=== PATIENT | female | born 1955 | race American Indian/Alaskan Native ===

== ENCOUNTER 2017-08-12 13:33 | Outpatient (CLI) | payer MEDICARE ==
--- NOTE | 2017-08-12 15:42 | Mammography Report ---
BILATERAL DIGITAL SCREENING MAMMOGRAM with CAD: 08/12/17 13:33:00 CLINICAL: Routine screening. COMPARISON:01/26/16 FINDINGS: The breasts are almost entirely fatty.Stable bilateral low density circumscribed asymmetries. No mass, architectural distortion or suspicious calcifications. IMPRESSION: No mammographic evidence of malignancy. BI-RADS CATEGORY: 2 - - Benign RECOMMENDATION: Routine mammographic screening in one year. COMMENT: Patient follow-up letters are generated by our [employer] application.
== END 2017-08-12 13:34 | disposition home or self-care (01) ==
LOC: MAMMO 13:33
PROVIDERS: ATTEND Internal Medicine
DX: Z12.31 Encounter for screening mammogram for malignant neoplasm of breast (principal)
CPT/HCPCS: 77067; G0202

== ENCOUNTER 2020-12-25 14:38 | Emergency (ER) | payer MEDICARE ==
[2020-12-25 15:25] VITALS: BP 154/64
--- NOTE | 2020-12-25 20:10 | Emergency Department Report ---
ED General Adult HPI - General Chief complaint: Fever Stated complaint: COVID SYMPTOMS Time Seen by Provider: 12/25/20 19:50 Source: patient Mode of arrival: Ambulatory Limitations: No Limitations - History of Present Illness Initial comments: 65-year-old female patient with history of Graves' disease, diabetes, and hypertension presents to the emergency department with complaints of chills and nonproductive cough for 5 days. No known sick contacts. No current steroid or antibiotic use. No recent travel. No history of chronic lung disease. Denies fever, chest pain, shortness of breath, wheezing, hemoptysis, vomiting, diarrhea, lower extremity pain/swelling. Denies all other complaints at this time. - Related Data Previous Rx's Medication Instructions Recorded Last Taken Type Amoxicillin/Potassium Clav 2,000 mg PO BID 7 Days tab.er.12h 12/26/20 Unknown Rx [Augmentin XR 1000MG 12HR] Azithromycin [Zithromax Z-KANIKA] 0 mg PO DAILY #1 pkg 12/26/20 Unknown Rx Benzonatate [Tessalon Perles] 200 mg PO Q8HR #30 capsule 12/26/20 Unknown Rx Allergies Allergy/AdvReac Type Severity Reaction Status Date / Time No Known Allergies Allergy Verified 12/25/20 15:22 ED Review of Systems ROS: Stated complaint: COVID SYMPTOMS Other details as noted in HPI Other: GENERAL: Positive for chills. ENT: Negative for ear pain, difficulty hearing, sore throat, nasal congestion, epistaxis. CARDIOVASCULAR: Negative for chest pain, palpitations, lower extremity swelling. PULMONARY: Positive for cough. GASTROINTESTINAL: Negative for abdominal pain, nausea, vomiting, diarrhea, constipation. MUSCULOSKELETAL: Negative for joint pain, joint swelling, myalgias, back pain, neck pain. NEUROLOGICAL: Negative for headache, seizure, syncope, paresthesias, weakness. INTEGUMENTARY: Negative for erythema, rash, diaphoresis, laceration, ecchymosis. HEMATOLOGICAL: Negative for hemoptysis, hematemesis, hematochezia, hematuria. PSYCHIATRIC: Negative for hallucinations, suicidal ideation, homicidal ideation, anxiety, depression. ED Past Medical Hx - Past Medical History Hx Hypertension: Yes Hx Diabetes: Yes Additional medical history: GRAVES DISEASE - Surgical History Additional Surgical History: TTHYROID - Medications Home Medications: Home Medications Medication Instructions Recorded Confirmed Last Taken Type Amoxicillin/Potassium Clav 2,000 mg PO BID 7 Days tab.er.12h 12/26/20 Unknown Rx [Augmentin XR 1000MG 12HR] Azithromycin [Zithromax Z-KANIKA] 0 mg PO DAILY #1 pkg 12/26/20 Unknown Rx Benzonatate [Tessalon Perles] 200 mg PO Q8HR #30 capsule 12/26/20 Unknown Rx ED Physical Exam - General Limitations: No Limitations - Other Other exam information: General: Awake and alert. No acute distress. Head: Atraumatic, normocephalic. Eyes: EOMI. Pupils are equal and round. Normal sclera and conjunctiva. Proptosis noted. ENT: Oral mucosa is moist. Normal pharyngeal exam. Neck: Supple. No lymphadenopathy. Pulmonary: No respiratory distress. Clear to auscultation bilaterally. Cardiac: Regular rate and rhythm. Pulses are palpable and equal bilaterally. No lower extremity cyanosis or edema. Skin: Warm and dry. No rashes. Abdomen: Soft, non-tender, non-protuberant. No guarding, rigidity, or rebound. Bowel sounds are normal. No organomegaly or masses noted. Back: Normal alignment. No CVA tenderness. Extremities: Symmetrical. Full range of motion intact. Neurological: Alert and oriented, appropriately interactive, no focal deficits. Psych: Cooperative. Appropriate mood and affect. Speech is evenly metered. Thoughts are logically construed. ED Course Vital Signs 12/25/20 15:24 Temperature 97.6 F Pulse Rate 71 Respiratory 22 Rate Blood Pressure 154/64 O2 Sat by Pulse 98 Oximetry ED Medical Decision Making - Lab Data Result diagrams: 12/25/20 21:25 12/25/20 21:25 - Radiology Data [facility] [address] [place] [address] XRay Report Signed Patient: CHELSEY CHURCH MR#: [id number] : 1955 Acct:[id number] Age/Sex: 65 / F ADM Date: 12/25/20 Loc: ED Attending Dr: Ordering Physician: DRAKE DOWNS Date of Service: 12/25/20 Procedure(s): XR chest routine 2V Accession Number(s): [id number] cc: DRAKE DOWNS Fluoro Time In Minutes: CHEST 2 VIEWS INDICATION: cough. COMPARISON: None. FINDINGS: Support devices: None. Heart: Within normal limits. Lungs/Pleura: Patchy opacity lateral to the left hilum. Small left basilar effusion. IMPRESSION: 1. Left-sided pneumonia lateral to the hilum. Recommend follow-up to ensure clearing and exclude an underlying mass. 2. Small left effusion. Signer Name: Lamberto Zabala MD Signed: 12/25/2020 8:41 PM Workstation Name: [id number] Transcribed By: ES Dictated By: Lamberto Zabala MD Electronically Authenticated By: Lamberto Zabala MD Signed Date/Time: 12/25/202040 DD/ 39 TD/TT: [facility] [address] [place] [address] Cat Scan Report Signed Patient: CHELSEY CHURCH MR#: [id number] : 1955 Acct:[id number] Age/Sex: 65 / F ADM Date: 12/25/20 Loc: ED Attending Dr: Ordering Physician: DRAKE DOWNS Date of Service: 12/25/20 Procedure(s): CT chest w con Accession Number(s): [id number] cc: DRAKE DOWNS CT chest with contrast INDICATION : Pt complains of cough x 3 days, Pleural Effusion, Mass vs. PNA, Abn CXR. TECHNIQUE: 100 mL of intravenous contrast administered. All CT scans at this location are performed using CT dose reduction for ALARA by means of automated exposure control. COMPARISON: Chest x-ray from yesterday FINDINGS: The heart and great vessels appear normal. No pathologic mediastinal adenopathy. A few shoddy lymph nodes are present. Patchy multifocal groundglass airspace disease is present, greatest in the left upper lobe region centrally. There is a trace right-sided pleural effusion and mild underlying compressive atelectasis. Limited imaging of the upper abdomen shows nonobstructive nephrolithiasis with a stone measuring 5 mm in the midpole the left kidney. There is simple cystic change within the liver and mild bilateral adrenal thickening. Nothing acute. There are degenerative changes within the spine with nothing acute. IMPRESSION: 1. Mild patchy multifocal groundglass airspace disease may represent multifocal pneumonia; however, an atypical process should be considered and appropriate testing administered as needed. 2. Additional incidental findings as above. Signer Name: Thuan Ley MD Signed: 12/26/2020 12:46 AM Workstation Name: [id number] Transcribed By: ASHELY Dictated By: Thuan Ley MD Electronically Authenticated By: Thuan Ley MD Signed Date/Time: 12/26/2045 DD/ TD/TT: - Medical Decision Making Differential diagnosis including but not limited to: pneumonia, pleural effusion, influenza, viral upper respiratory infection On reevaluation, patient remains stable. No hypoxia, no respiratory distress. Chest x-ray shows left-sided pneumonia lateral to the hilum with small left pleural effusion; cannot exclude underlying mass. CT of the chest with IV contrast obtained for further evaluation. Imaging showed mild patchy multifocal groundglass airspace disease, may represent multifocal pneumonia. Patient has a less than 1% mortality rate per PSI risk stratification; she is an appropriate candidate for outpatient management. Patient will be discharged home with prescriptions for Augmentin and Zithromax per current ATS/IDSA outpatient community-acquired pneumonia guidelines; Tessalon prescription provided for symptomatic relief. Emphasized the importance of following up with primary care provider and/or pulmonology this week for further evaluation. Patient expressed understanding and is agreeable to plan of care. Disease transmission precautions discussed. Strict return precautions provided. Repeat exam is unremarkable and benign. History, exam, diagnostic testing, and current condition do not suggest worrisome pathology to warrant further testing, continued ED treatment, admission, or surgical evaluation at this point. Given the low probability of a significant medical illness, it would be more likely to result in harm than benefit to perform further testing at this stage. Discussed findings, presumptive diagnosis, need for follow-up and specific signs/symptoms that should prompt immediate return to the emergency department. Instructions were explained in detail to the patient in addition to giving written discharge information. Patient expressed understanding and was given the opportunity to ask questions, all of which were satisfactorily answered prior to discharge home. Critical care attestation.: If time is entered above; I have spent that time in minutes in the direct care of this critically ill patient, excluding procedure time. ED Disposition Clinical Impression: Ground glass opacity present on imaging of lung, Pleural effusion Disposition: TO HOME OR SELFCARE Is pt being admited?: No Does the pt Need Aspirin: No Condition: Stable Instructions: Pleural Effusion, Community-Acquired Pneumonia, Adult, [id number] Additional Instructions: Take Augmentin and Zithromax with food as directed. Increase your dietary intake of probiotic rich foods while taking this medication. Take Tessalon as directed for cough. Rest. Drink plenty fluids. Wash hands frequently to prevent disease transmission. Do not share food or drinks with others. Follow-up with primary care provider and/or pulmonology within 1 week. Call tomorrow to schedule an appointment. Bring a copy of today's results with you to your follow-up appointment. Return to the emergency department immediately for new or worsening symptoms. Specifically, return to the emergency department immediately for fever, difficulty breathing, chest pain, wheezing, rash, loss of consciousness, or any other concerns. Prescriptions: Amoxicillin/Potassium Clav [Augmentin XR 1000MG 12HR] 2,000 mg PO BID 7 Days tab.er.12h Benzonatate [Tessalon Perles] 200 mg PO Q8HR #30 capsule Azithromycin [Zithromax Z-KANIKA] 0 mg PO DAILY #1 pkg Referrals: MODESTA TORO MD [Staff Physician] - 3-5 Days LOULOU ENCARNACION MD [Staff Physician] - 3-5 Days Time of Disposition: 01:06
--- NOTE | 2020-12-25 20:45 | XRay Report ---
CHEST 2 VIEWS INDICATION: cough. COMPARISON: None. FINDINGS: Support devices: None. Heart: Within normal limits. Lungs/Pleura: Patchy opacity lateral to the left hilum. Small left basilar effusion. IMPRESSION: 1. Left-sided pneumonia lateral to the hilum. Recommend follow-up to ensure clearing and exclude an u nderlying mass. 2. Small left effusion. Signer Name: Lamberto Zabala MD Signed: 12/25/2020 8:41 PM Workstation Name: [email or web address]
[2020-12-25 21:35] LABS: Basophils % (Auto) 0.4 % (0.0-1.8); Eosinophils % (Auto) 0.7 % (0.0-4.3); Hematocrit 35.8 % (30.3-42.9); Hemoglobin 12.7 gm/dl (10.1-14.3); Lymphocytes # (Auto) 1.2 K/mm3 (1.2-5.4); Lymphocytes % (Auto) 29.7 % (13.4-35.0); Mean Corpuscular HGB Conc 36 % (30-34); Mean Corpuscular Volume 89 fl (79-97); Monocytes # (Auto) 0.6 K/mm3 (0.0-0.8); Monocytes % (Auto) 14.1 % (0.0-7.3); Platelet Count 306 K/mm3 (140-440); Red Blood Count 4.01 M/mm3 (3.65-5.03); Red Cell Distribution Width 12.8 % (13.2-15.2)
[2020-12-25 21:58] LABS: Alanine Aminotransferase 12 units/L (7-56); Albumin 4.4 g/dL (3.9-5); BUN/Creatinine Ratio 17; Blood Urea Nitrogen 15 mg/dL (7-17); Calcium 9.4 mg/dL (8.4-10.2); Hemolysis Index 7
--- NOTE | 2020-12-26 00:51 | Cat Scan Report ---
CT chest with contrast INDICATION : Pt complains of cough x 3 days, Pleural Effusion, Mass vs. PNA, Abn CXR. TECHNIQUE: 100 mL of intravenous contrast administered. All CT scans at this location are performed using CT dose reduction for ALARA by means of automated exposure control. COMPARISON: Chest x-ray from yesterday FINDINGS: The heart and great vessels appear normal. No pathologic mediastinal adenopathy. A few levi ddy lymph nodes are present. Patchy multifocal groundglass airspace disease is present, greatest in the left upper lobe region savi trally. There is a trace right-sided pleural effusion and mild underlying compressive atelectasis. Limited imaging of the upper abdomen shows nonobstructive nephrolithiasis with a stone measuring 5 mm in the midpole the left kidney. There is simple cystic change within the liver and mild bilateral ad renal thickening. Nothing acute. There are degenerative changes within the spine with nothing acute. IMPRESSION: 1. Mild patchy multifocal groundglass airspace disease may represent multifocal pneumonia; however, a n atypical process should be considered and appropriate testing administered as needed. 2. Additional incidental findings as above. Signer Name: Thuan Ley MD Signed: 12/26/2020 12:46 AM Workstation Name: [id number]
== END 2020-12-26 01:25 | disposition home or self-care (01) ==
LOC: ED 14:38
DX: J90 Pleural effusion, not elsewhere classified (principal); R91.8 Other nonspecific abnormal finding of lung field; I10 Essential (primary) hypertension; E11.9 Type 2 diabetes mellitus without complications; Z79.2 Long term (current) use of antibiotics; Z79.899 Other long term (current) drug therapy
CPT/HCPCS: 36415; 71046; 71260; 80053; 85025; 99284; Q9967

== ENCOUNTER 2021-01-07 14:38 | Outpatient (CLI) | payer MEDICARE ==
--- NOTE | 2021-01-07 15:39 | XRay Report ---
CHEST 2 VIEWS INDICATION / CLINICAL INFORMATION: PNEUMONIA. COMPARISON: 12/25/2020 FINDINGS: SUPPORT DEVICES: None. HEART / MEDIASTINUM: No significant abnormality. LUNGS / PLEURA: No significant pulmonary or pleural abnormality. No pneumothorax. ADDITIONAL FINDINGS: No significant additional findings. IMPRESSION: No significant abnormality. Previously seen left-sided airspace disease has resolved Signer Name: Butch Finch MD FACR Signed: 01/07/2021 3:34 PM Workstation Name: [email or web address]
== END 2021-01-07 14:39 | disposition home or self-care (01) ==
LOC: XRAY 14:38
PROVIDERS: ATTEND Internal Medicine
DX: J18.9 Pneumonia, unspecified organism (principal)
CPT/HCPCS: 71046

== ENCOUNTER 2021-01-11 10:29 | Emergency (ER) | payer MEDICARE ==
--- NOTE | 2021-01-11 10:50 | Emergency Department Report ---
ED General Adult HPI - General Chief complaint: Pain General Stated complaint: HEADACHE/MUSCLE ACHE Time Seen by Provider: 01/11/21 10:46 Source: patient Mode of arrival: Ambulatory Limitations: No Limitations - History of Present Illness Initial comments: 65-year-old female patient with history of hypertension, diabetes, Graves' disease, and pneumonia presents to the emergency department with complaints of nontraumatic headache, nonproductive cough, and generalized body aches for approximately 1 week. No known sick contacts. No current steroid or antibiotic use. No recent travel. Patient has not been tested for COVID-19 since the onset of her symptoms. Denies fever, chills, chest pain, shortness of breath, palpitations, vision changes, nausea, vomiting, syncope, seizure, neck stiffness, rash. Denies all other complaints at this time. - Related Data Previous Rx's Medication Instructions Recorded Last Taken Type Amoxicillin/Potassium Clav 2,000 mg PO BID 7 Days tab.er.12h 12/26/20 Unknown Rx [Augmentin XR 1000MG 12HR] Azithromycin [Zithromax Z-KANIKA] 0 mg PO DAILY #1 pkg 12/26/20 Unknown Rx Benzonatate [Tessalon Perles] 200 mg PO Q8HR #30 capsule 12/26/20 Unknown Rx Allergies Allergy/AdvReac Type Severity Reaction Status Date / Time No Known Allergies Allergy Verified 12/25/20 15:22 ED Review of Systems ROS: Stated complaint: HEADACHE/MUSCLE ACHE Other details as noted in HPI Other: GENERAL: Negative for fever, chills, weight change, anorexia, fatigue. ENT: Negative for ear pain, difficulty hearing, sore throat, nasal congestion, epistaxis. CARDIOVASCULAR: Negative for chest pain, palpitations, lower extremity swelling. PULMONARY: Negative for cough, dyspnea, wheezing, orthopnea, cyanosis. GASTROINTESTINAL: Negative for abdominal pain, nausea, vomiting, diarrhea, constipation. MUSCULOSKELETAL: Positive for myalgias. NEUROLOGICAL: Positive for headache. INTEGUMENTARY: Negative for erythema, rash, diaphoresis, laceration, ecchymosis. HEMATOLOGICAL: Negative for hemoptysis, hematemesis, hematochezia, hematuria. PSYCHIATRIC: Negative for hallucinations, suicidal ideation, homicidal ideation, anxiety, depression. ED Past Medical Hx - Past Medical History Previous Medical History?: Yes Hx Hypertension: Yes Hx Diabetes: Yes Additional medical history: GRAVES DISEASE - Surgical History Past Surgical History?: Yes Additional Surgical History: THYROID - Social History Smoking Status: Never Smoker Substance Use Type: None - Medications Home Medications: Home Medications Medication Instructions Recorded Confirmed Last Taken Type Amoxicillin/Potassium Clav 2,000 mg PO BID 7 Days tab.er.12h 12/26/20 Unknown Rx [Augmentin XR 1000MG 12HR] Azithromycin [Zithromax Z-KANIKA] 0 mg PO DAILY #1 pkg 12/26/20 Unknown Rx Benzonatate [Tessalon Perles] 200 mg PO Q8HR #30 capsule 12/26/20 Unknown Rx ED Physical Exam - General Limitations: No Limitations - Other Other exam information: General: Awake and alert. No acute distress. Head: Atraumatic, normocephalic. Eyes: EOMI. Pupils are equal and round. Normal sclera and conjunctiva. Bilateral proptosis consistent with reported history of Grave's disease. ENT: Oral mucosa is moist. Normal pharyngeal exam. Neck: Supple. No lymphadenopathy. Pulmonary: No respiratory distress. Clear to auscultation bilaterally. Cardiac: Bradycardic. Pulses are palpable and equal bilaterally. No lower extremity cyanosis or edema. Skin: Warm and dry. No rashes. Abdomen: Soft, non-tender, non-protuberant. No guarding, rigidity, or rebound. Bowel sounds are normal. No organomegaly or masses noted. Back: Normal alignment. No CVA tenderness. Extremities: Symmetrical. Full range of motion intact. Neurological: Alert and oriented, appropriately interactive, no focal deficits. Psych: Cooperative. Appropriate mood and affect. Speech is evenly metered. Thoughts are logically construed. ED Course Vital Signs 01/11/21 01/11/21 10:42 14:57 Temperature 98.3 F 98.3 F Pulse Rate 42 L 88 Respiratory 15 20 Rate Blood Pressure 158/46 Blood Pressure 148/68 [Right] O2 Sat by Pulse 100 98 Oximetry ED Medical Decision Making - Lab Data Result diagrams: 01/11/21 10:58 01/11/21 10:58 - Medical Decision Making Differential diagnosis including but not limited to: pneumonia, influenza, dehydration, electrolyte abnormality, urinary tract infection, pyelonephritis, rhabdomyolysis, mononucleosis On reevaluation, patient remains stable. Urinalysis is unremarkable. CXR is negative. Chemistries show mild hypomagnesemia. Labs show leukopenia with white blood cell count of 2.7 with lymphocytic/monocytic predominance. Monospot is negative although patient's symptoms have only been present for 1 week. Case discussed with Dr. Beal, attending emergency physician, who recommended obtaining thyroid studies and ambulatory SpO2 for further evaluation. Patient's TSH is slightly low. States she has been taking levothyroxine since undergoing thyroid radiofrequency ablation last year. Free T4 is normal. No clinical evidence to suggest thyroid storm or myxedema coma warranting further diagnostic work-up on an emergent basis at this time. Her pulse oximetry on room air is 98% with ambulation. Repeat heart rate 88 bpm. Overall clinical presentation is suggestive of viral illness. She is scheduled to see her primary care provider tomorrow; decision to adjust her thyroid medication will be deferred to PCP. Patient will be discharged home with a copy of her lab results to take with her to her follow-up appointment tomorrow. Emphasized the importance of rest and hydration. Patient expressed understanding and is agreeable to plan of care. Disease transmission precautions discussed. Strict return precautions provided. Repeat exam is unremarkable and benign. History, exam, diagnostic testing, and current condition do not suggest worrisome pathology to warrant further testing, continued ED treatment, admission, or surgical evaluation at this point. Given the low probability of a significant medical illness, it would be more likely to result in harm than benefit to perform further testing at this stage. Discussed findings, presumptive diagnosis, need for follow-up and specific signs/symptoms that should prompt immediate return to the emergency department. Instructions were explained in detail to the patient in addition to giving written discharge information. Patient expressed understanding and was given the opportunity to ask questions, all of which were satisfactorily answered prior to discharge home. Critical care attestation.: If time is entered above; I have spent that time in minutes in the direct care of this critically ill patient, excluding procedure time. ED Disposition Clinical Impression: Body aches, Low TSH level Disposition: DC-01 TO HOME OR SELFCARE Is pt being admited?: No Does the pt Need Aspirin: No Condition: Stable Instructions: Muscle Pain, Adult Additional Instructions: Take Tylenol every 4 hours and Motrin every 8 hours as needed for pain. Rest. Drink plenty of fluids. Wash hands frequently to prevent disease transmission. Do not share food or drinks with others. Continue all medications as previously prescribed. Follow-up with your primary care provider tomorrow as previously scheduled. Bring a copy of today's results with you to your follow-up appointment. Return to the emergency department immediately for new or worsening symptoms. Referrals: MODESTA TORO MD [Staff Physician] - 3-5 Days Time of Disposition: 14:51
--- NOTE | 2021-01-11 11:23 | XRay Report ---
CHEST 2 VIEWS INDICATION / CLINICAL INFORMATION: cough/bodyaches. COMPARISON: 01/07/2021 FINDINGS: SUPPORT DEVICES: None. HEART / MEDIASTINUM: Stable. LUNGS / PLEURA: No significant pulmonary or pleural abnormality. No pneumothorax. ADDITIONAL FINDINGS: No significant additional findings. IMPRESSION: 1. No acute findings. Signer Name: Leonides Quinn MD Signed: 01/11/2021 11:19 AM Workstation Name: [email or web address]
[2021-01-11 11:24] LABS: Basophils % (Auto) 0.8 % (0.0-1.8); Eosinophils # (Auto) 0.1 K/mm3 (0.0-0.4); Hematocrit 36.3 % (30.3-42.9); Lymphocytes # (Auto) 0.9 K/mm3 (1.2-5.4); Lymphocytes % (Auto) 35.3 % (13.4-35.0); Mean Corpuscular HGB Conc 33 % (30-34); Mean Corpuscular Volume 91 fl (79-97); Monocytes # (Auto) 0.3 K/mm3 (0.0-0.8); Monocytes % (Auto) 11.8 % (0.0-7.3); Platelet Count 242 K/mm3 (140-440); Red Cell Distribution Width 13.5 % (13.2-15.2)
[2021-01-11 11:43] LABS: Alanine Aminotransferase 16 units/L (7-56); Albumin 4.1 g/dL (3.9-5); BUN/Creatinine Ratio 9; Blood Urea Nitrogen 8 mg/dL (7-17); Calcium 9.4 mg/dL (8.4-10.2); Hemolysis Index 7
[2021-01-11 12:36] LABS: Bilirubin,Urine NEG (Negative); Blood,Urine NEG (Negative); Color,Urine Colorless (Yellow); Protein,Urine <15 mg/dL mg/dL (Negative); Urobilinogen,Urine < 2.0 mg/dL (<2.0)
[2021-01-11 12:49] LABS: WBC,Urine < 1.0 /HPF (0.0-6.0)
[2021-01-11 14:58] VITALS: BP 148/68
== END 2021-01-11 15:16 | disposition home or self-care (01) ==
LOC: ED 10:29
DX: R53.81 Other malaise (principal); R94.6 Abnormal results of thyroid function studies; I10 Essential (primary) hypertension; E11.9 Type 2 diabetes mellitus without complications; Z98.890 Other specified postprocedural states; Z79.2 Long term (current) use of antibiotics; Z79.899 Other long term (current) drug therapy
CPT/HCPCS: 36415; 71046; 80053; 81001; 82550; 83735; 84436; 84443; 85025; 86308